=== PATIENT | male | born 1950 | race Caucasian/White ===

== ENCOUNTER 2017-07-19 06:09 | Day surgery (SDC) | payer SELFPAY ==
[2017-07-13 08:35] VITALS: BMI 24.9
[2017-07-19] MEDS ORDERED: Ciprofloxacin 0.3% OPTH SOLN OS SCH (06:30)
[2017-07-19] MEDS ORDERED: Lactated Ringer's 1,000 ML IV ONE (07:26)
[2017-07-19] MEDS ORDERED: Lidocaine/Epinephrine 1% 1:100000 10 ML IJ ONE (08:00)
[2017-07-19] MEDS ORDERED: Propofol 10 mg/ml Inj (20 ML) ONE (08:04)
[2017-07-19] MEDS ORDERED: Propofol 10 mg/ml 1,000 MG/100 ML VIAL ONE (08:06)
[2017-07-19] MEDS ORDERED: Carbachol 0.01% IO ONE (08:10)
[2017-07-19] MEDS ORDERED: Tobramycin/Dexamethasone OPHT OINT ONE (08:10)
[2017-07-19] MEDS ORDERED: Tetracaine 0.5% Ophth (OR ONLY) ONE (08:10)
[2017-07-19] MEDS ORDERED: Lidocaine 2% Inj (20ml) ONE (08:10)
[2017-07-19] MEDS ORDERED: Povidone Iodine Ophthalmic 5% Soln ONE (08:10)
[2017-07-19] MEDS ORDERED: Hyaluronidase Human, Recombi 150 U/ML VIAL ONE (08:11)
[2017-07-19] MEDS ORDERED: Chondroitin/Hyaluronate 40 mg/ml-30 mg/ml Ophth Syringe (0.5 ml) IO ONE (08:25)
[2017-07-19] MEDS ORDERED: Midazolam 2 MG/2 ML VIAL ONE (09:01)
[2017-07-19 10:32] VITALS: O2SAT 98
[2017-07-19 11:03] VITALS: RESP 16
[2017-07-19 11:24] VITALS: BP 141/66; PULSE 62; TEMP 97.8
--- NOTE | 2017-07-21 14:23 | OP ---
PROCEDURE DATE: 07/18/2017 PREOPERATIVE DIAGNOSIS: Bleb leak of the left eye. POSTOPERATIVE DIAGNOSIS: Bleb leak of the left eye. PROCEDURE: Bleb revision with scleral patch graft of the left eye. COMPLICATIONS: None. DESCRIPTION OF PROCEDURE: The dictation is as follows: The patient was premedicated and brought to the operating room and placed on the operating table in the supine position. After adequate anesthesia, a retrobulbar injection of 2% lidocaine with 0.75% Marcaine was given. The patient was prepped and draped in the usual sterile ophthalmic fashion. A lid speculum was inserted and the microscope was positioned. A temporal paracentesis was created and Viscoat was injected into the anterior chamber. A 7-0 Prolene traction suture was then placed and the eye was rotated inferiorly. Next, 0.1 mL of 1% lidocaine with epinephrine was given subconjunctivally with a 30-gauge needle directed toward the site of the bleb leak. A superior was fashioned and a 2-mm full-thickness defect at the site of the prior sclerotomy was identified. A scleral patch graft was sutured over the scleral defect using 10-0 nylon sutures; 8-0 Vicryl sutures and 10-0 nylon sutures were then used to advance the conjunctiva over the patch graft and close the peritomy. The anterior chamber was filled with additional BSS. There was noted to be no leakage and the anterior chamber was noted to be deep. Additional viscoelastic was injected into the anterior chamber. The eyelid traction suture was removed. The eyelid speculum was removed. Topical antibiotic and steroid drops were placed onto the eye. Antibiotic and steroid ointment was placed onto the eye. The eye was patched and shielded and the patient was wheeled to the recovery room in stable condition. Marcos Mchugh MD
== END 2017-07-19 11:21 | disposition home or self-care (01) ==
LOC: C.SDS 06:09
PROVIDERS: ATTEND Ophthalmology
DX: Z98.83 Filtering (vitreous) bleb after glaucoma surgery status (principal); N40.1 Benign prostatic hyperplasia with lower urinary tract symptoms; E74.39 Other disorders of intestinal carbohydrate absorption; E03.9 Hypothyroidism, unspecified; Z79.899 Other long term (current) drug therapy
CPT/HCPCS: 66180; J2250; J2704; J3010; J3470; J7120